=== PATIENT | female | born 1955 | race Caucasian/White ===

== ENCOUNTER 2021-06-24 06:23 | Day surgery (SDC) | payer MEDICARE, OTHER ==
[2021-06-22 11:22] VITALS: BMI 26.7
[2021-06-24] MEDS ORDERED: AFRIN NASAL MIST 15 ML BOT ONE ×2 (07:47→08:32)
[2021-06-24] MEDS ORDERED: Lidocaine 1% MPF 2 ML VIAL ONE (07:58)
[2021-06-24] MEDS ORDERED: Xylocaine 1% w/ Epi 1:100K 10 ML VIAL ONE (08:32)
[2021-06-24 08:39] LABS: Hemoglobin 13.6 g/dL (12.0-16.0)
[2021-06-24] MEDS ORDERED: Fentanyl 250 MCG/5 ML VIAL ONE ×2 (08:41→09:27)
[2021-06-24] MEDS ORDERED: Ondansetron PF 4 MG/2 ML Vial ONE (08:48)
[2021-06-24] MEDS ORDERED: PROPOFOL 200 MG/20 ML VIAL ONE (08:48)
[2021-06-24] MEDS ORDERED: Dexamethasone 20 MG/5 ML VIAL ONE (08:48)
[2021-06-24] MEDS ORDERED: Lidocaine 1% PF 5 ML VIAL ONE (08:48)
[2021-06-24] MEDS ORDERED: Bacitracin Zinc Ointment 30 gm TUBE ONE (08:56)
[2021-06-24 09:00] LABS: Anion Gap 13 mmol/L (10-20); BUN (Urea Nitrogen) 19 mg/dL (9.8-20.1); Calc. Creatinine Clearance 103 mL/min (70-130); Calcium 9.4 mg/dL (7.8-10.44); Carbon Dioxide 23 mmol/L (23-31); Chloride 109 mmol/L (98-107); Glucose 111 mg/dL (80-115); Potassium 3.8 mmol/L (3.5-5.1); Sodium 141 mmol/L (136-145)
[2021-06-24] MEDS ORDERED: hydrALAZINE 20 MG/ML VIAL ONE (10:53)
[2021-06-24] MEDS ORDERED: Hydrocodone-Acetamin 15 ML UDCUP ONE (11:17)
[2021-06-24] MEDS ORDERED: Ondansetron ODT 4 MG TAB ONE (13:07)
== END 2021-06-24 13:11 | disposition home or self-care (01) ==
LOC: SDC 06:23
PROVIDERS: ATTEND Otolaryngology Plastic Surgery within the Head & Neck
PROC: 0NSBXZZ Reposition Nasal Bone, External Approach (ICD-10-PCS; principal; 2021-06-24)
DX: S02.2XXA Fracture of nasal bones, initial encounter for closed fracture (principal); J34.89 Other specified disorders of nose and nasal sinuses; Z79.899 Other long term (current) drug therapy; W01.0XXA Fall on same level from slipping, tripping and stumbling without subsequent striking against object, initial encounter
CPT/HCPCS: 36415; 80048; 85014; 85018; 93005; 93010; J0360; J1100; J2405; J2704; J3010; Q0162